=== PATIENT | male | born 1965 | race African-American/Black ===

== ENCOUNTER 2017-09-18 17:34 | Emergency (ER) | payer OTHER ==
[~2017-09-18] VITALS: Ht 190.5 cm; Wt 150.9 kg
[~2017-09-18 17:34] MED LIST: AMLODIPINE BESY10 MG PO; CLEOCIN300 MG PO; CLONIDINE HCL0.1 MG PO; CLONIDINE HCL0.2 MG PO; FLEXERIL5 MG PO; FUROSEMIDE40 MG PO; FUTURO RESTORI1 EACH MC; HYDROCHLOROTHIA25 MG PO; HYDROCODON-ACE1 EAC7 PO; KLOR-CON M1010 MEQ PO; LASIX40 MG PO; LITE COAT ASPI325 M1 PO; METOLAZONE2.5 MG PO; MOTRIN600 MG PO; NORVASC10 MG PO; SERTRALINE HCL50 MG PO; SUBOXONE 8 MG-1 EAC2 SL; TRAMADOL HCL50 MG PO; ZOFRAN ODT4 MG PO; ZUBSOLV 8.6-2.1 EACH SL
[2017-09-18 22:54] LABS: HEMATOCRIT 34.6 % (38.0-50.0); HEMOGLOBIN 11.1 G/DL (12.5-16.6); MCH 27.1 PG (29.0-34.0); MCHC 32.1 G/DL (30.0-36.0); MCV 84.6 FL (86-99); PLATELET COUNT 277 K/uL (156-360); RBC DIS.WIDTH-CV 15.4 % (11.8-14.6); RBC DIS.WIDTH-SD 47.3 % (39-53); RED BLOOD COUNT 4.09 M/uL (4.00-5.50); WHITE BLOOD COUNT 7.6 K/uL (4.1-10.2)
[2017-09-18 23:05] LABS: ALBUMIN 3.8 g/dL (3.2-4.8)
[2017-09-18 23:06] LABS: CHLORIDE 106 mEq/L (99-109); POTASSIUM 4.1 mEq/L (3.7-5.4); SODIUM 138 mEq/L (136-147)
[2017-09-18 23:08] LABS: GLUCOSE 194 mg/dL (70-99); TOTAL PROTEIN 7.8 g/dL (6.4-8.3)
[2017-09-18 23:10] LABS: TOTAL BILIRUBIN 0.3 mg/dL (0.0-1.0)
[2017-09-18 23:11] LABS: ALKALINE PHOSPHATASE 90 IU/L (3-129)
[2017-09-18 23:12] LABS: CREATININE 1.1 mg/dL (0.6-1.3); GFR ESTIMATE (CALCULATED) > 59 mL/min/ (58.99-99999)
[2017-09-18 23:13] LABS: AST (GOT) 11 IU/L (2-34); UREA NITROGEN (BUN) 15 mg/dL (9-23)
[2017-09-18 23:15] LABS: ALT (GPT) 12 IU/L (3-49)
[2017-09-19] MEDS ORDERED: LEVAQUIN750 MG PO (00:23)
[2017-09-19] MEDS ORDERED: PERCOCET 5/31 TABLET PO (00:46)
[2017-09-19 00:54] VITALS: BP 155/80
== END 2017-09-19 00:56 | disposition home or self-care (01) ==
LOC: EME 17:34
PROVIDERS: Physician Assistant
DX: L97.919 Non-pressure chronic ulcer of unspecified part of right lower leg with unspecified severity (principal); M79.604 Pain in right leg; I89.0 Lymphedema, not elsewhere classified; I10 Essential (primary) hypertension; R73.03 Prediabetes; F32.9 Major depressive disorder, single episode, unspecified; F17.200 Nicotine dependence, unspecified, uncomplicated; Z90.49 Acquired absence of other specified parts of digestive tract; Z88.8 Allergy status to other drugs, medicaments and biological substances
CPT/HCPCS: 73590; 80053; 83605; 85027; 87040; 87147; 87205; 99281; 99285

== ENCOUNTER 2017-10-09 18:02 | Emergency (ER) | payer OTHER ==
[~2017-10-09] VITALS: Ht 190.5 cm; Wt 153.8 kg
[~2017-10-09 18:02] MED LIST changes: +LEVAQUIN750 MG PO; +PERCOCET 5/31 TABLET PO
[2017-10-09] MEDS ORDERED: HYDROCHLOROTH12.5 M3 PO (19:35)
[2017-10-09 20:22] VITALS: BP 153/92
== END 2017-10-09 20:22 | disposition home or self-care (01) ==
LOC: EME 18:02
DX: I10 Essential (primary) hypertension (principal); F32.9 Major depressive disorder, single episode, unspecified; Z90.49 Acquired absence of other specified parts of digestive tract; F17.200 Nicotine dependence, unspecified, uncomplicated; Z88.8 Allergy status to other drugs, medicaments and biological substances
CPT/HCPCS: 99281; 99283

== ENCOUNTER 2017-12-27 16:15 | Emergency (ER) | payer OTHER ==
[~2017-12-27] VITALS: Ht 188 cm; Wt 159.2 kg
[~2017-12-27 16:15] MED LIST changes: +HYDROCHLOROTH12.5 M3 PO
[2017-12-27] MEDS ORDERED: ULTRACET1 TABLET PO (18:14)
[2017-12-27 19:01] VITALS: BP 136/83
== END 2017-12-27 19:00 | disposition home or self-care (01) ==
LOC: EME 16:15
DX: I89.0 Lymphedema, not elsewhere classified (principal); S81.802A Unspecified open wound, left lower leg, initial encounter; S81.801A Unspecified open wound, right lower leg, initial encounter; G89.29 Other chronic pain; I10 Essential (primary) hypertension; F32.9 Major depressive disorder, single episode, unspecified; F17.200 Nicotine dependence, unspecified, uncomplicated; Z79.82 Long term (current) use of aspirin; Z90.49 Acquired absence of other specified parts of digestive tract; Z88.8 Allergy status to other drugs, medicaments and biological substances
CPT/HCPCS: 99281; 99283